=== PATIENT | female | born 1990 | race Hispanic/Latino ===

== ENCOUNTER 2016-07-09 14:40 | Emergency (ER) | payer OTHER ==
[2016-07-09] MEDS ORDERED: PERCOCET 5MG/325MG TAB As Ordered ONE (15:40)
[2016-07-09] MEDS ORDERED: ONDANSETRON 4 MG ORAL DISINTEGRATING TAB (S0181) As Ordered ONE (15:40)
--- NOTE | 2016-07-09 16:10 | EDDOCDS ---
Nurse's Notes [facility] Name: Jennifer Almonte Age: 25 yrs Sex: Female : 1990 Arrival Date: 07/09/2016 Time: 14:40 Bed I6 / 28 Private MD: Ramiro - Complete Info On Cds Diagnosis: Strain of muscle(s) and tendon(s) of the rotator cuff of left shoulder Presentation: 07/09 14:47 Presenting complaint: Patient states: while lifting up rucksack patient felt arm give hs1 out and felt a pop. Adult Sepsis Screening: The patient does not have new or worsening altered mentation. Patient's respiratory rate is less than 22. Systolic blood pressure is greater than 100. Patient has a qSOFA score of 0- Negative Sepsis Screen. Suicide/Homicide risk assessment- the patient denies having any suicidal and/or homicidal ideations and does not present with any other emotional, behavioral or mental health complaints. 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 Transition of care: patient was not received from another setting of care. 14:47 Acuity: HEYDI Level 4 hs1 14:47 Method Of Arrival: Walkin/Carried/Asstd hs1 Triage Assessment: 14:48 General: Appears uncomfortable, Behavior is appropriate for age, cooperative. Pain: hs1 Location: left clavicle Pain currently is 7 out of 10 on a pain scale. Quality of pain is described as pulsating. Pain: Quality of pain is described as sharp. Pt Declines HIV testing. Respiratory: Airway is patent Respiratory effort is even, unlabored. Derm: No deficits noted. 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 none - PMHx: none; - PSHx: none; - Social history: Smoking status: Patient states was never smoker of tobacco. No barriers to communication noted, The patient speaks fluent Frisian, Speaks appropriately for age. - Family history: Not pertinent. - : The pt / caregiver states he / she is not on anticoagulants. Home medication list is obtained from the patient. - Exposure Risk Screening:: None identified. Screenin:07 Screening information is obtained from the patient. Fall risk: No risks identified. mcp Assistance ADL's: requires no assistance with activities of daily living. Abuse/DV Screen: The patient / caregiver reports he/she is: not in a situation that causes fear, pain or injury. Nutritional screening: No deficits noted. Advance Directives: There is no active DNR order. home support is adequate. Assessment: 16:06 General: Appears uncomfortable, Behavior is cooperative. Pain: Location: left shoulder mcp Pain currently is 6 out of 10 on a pain scale. Neurological: No deficits noted. Respiratory: Airway is patent Respiratory effort is even, unlabored. Derm: Skin is pink, warm & dry. Musculoskeletal: Circulation, motion, and sensation intact Range of motion limited in left shoulder. Vital Signs: 14:41 BP 131 / 64; Pulse 80; Resp 18 S; Temp 97.7(O); Pulse Ox 99% on R/A; Weight 54.88 kg gr2 (R); Height 5 ft. 4 in. (162.56 cm) (R); Pain 9/10; 16:07 BP 113 / 72; Pulse 76; Resp 20; Temp 97(O); Pulse Ox 98% on R/A; Pain 6/10; mcp 16:09 Pain 6/10; mcp 14:41 Body Mass Index 20.77 (54.88 kg, 162.56 cm) gr2 Vitals: 14:41 Log In Time: July 09, 2016 at 14:41. gr2 ED Course: 14:41 Patient visited by Barbie Salmeron. gr2 14:41 Other - Complete Info On Cds is Private Physician. gr2 14:41 Patient moved to Waiting gr2 14:44 Patient visited by Barbie Salmeron. gr2 14:48 Triage Initiated hs1 14:49 Patient moved to Pre RCE hs1 15:33 José Warren PA-C is PHCP. cc10 15:33 Kindra Park MD is Attending Physician. cc10 15:33 Patient visited by José Warren PA-C. cc10 15:33 Patient visited by José Warren PA-C. cc10 15:33 Patient moved to Triage 1 mk4 15:42 Patient moved to TR8 bnb 15:48 Patient moved to I6 / 28 cc10 15:55 Tremaine Spann [facility] is Referral Physician. cc10 16:07 The patient / caregiver is instructed regarding the plan of care and ED course. Patient mcp has correct armband on for positive identification. Bed in low position. Call light in reach. 16:07 No IV's were initiated during this patient's visit. No procedures done that require mcp assistance. Sling applied to left arm. Patient with positive distal sensation and brisk distal capillary refill after application. Administered Medications: 15:42 Drug: oxyCODONE-acetaminophen 1 tabs [oxycodone-acetaminophen 5 mg-325 mg tablet (1 mlb1 tabs)] Route: PO; 16:09 Follow up: Pain 6/10 Adult; Response: Pain is decreased [facility] 15:42 Drug: Ondansetron ODT 4 mg [ondansetron 4 mg disintegrating tablet (1 tabs)] Route: PO; mlb1 Order Results: There are currently no results for this order. Outcome: 15:55 Discharge ordered by Provider. cc10 16:08 Discharge Assessment: patient administered narcotics - yes. Pt provided with safe mcp discharge. The following High Risk Discharge criteria are identified: None. Discharged to home ambulatory, with friend. Condition: stable. Discharge instructions given to patient, Instructed on discharge instructions, follow up and referral plans. medication usage, no driving heavy equipment, no drinking with medication, Demonstrated understanding of instructions, medications, Pt was receptive of discharge instructions/ teaching. Prescriptions given X 1. No special radiology studies were completed. Property sent home with patient. 16:09 Patient left the ED. [facility] Signatures: Amie Head RN RN Jonathan Marx RN RN mlb1 Cinthia Mao RN RN hs1 Barbie Salmeron gr2 Amanda Batista RN RN mk4 José Warren, PA-C PA-C cc10 Azul Boston, YOGESH DEODORIZER OPERATOR bnb MTDD
--- NOTE | 2016-07-09 16:10 | EDDOCDS ---
Physician Documentation [facility] Name: Jennifer Almonte Age: 25 yrs Sex: Female : 1990 Arrival Date: 07/09/2016 Time: 14:40 Bed I6 / 28 Private MD: Ramiro - Complete Info On Cds Disposition: 07/09/16 15:55 Discharged to Home/Self Care. Impression: Strain of muscle(s) and tendon(s) of the rotator cuff of left shoulder. - Condition is Stable. - Discharge Instructions: Shoulder Sprain. - Prescriptions for Percocet 5- 325 mg Oral Tablet - take 1 tablet by ORAL route every 6 hours As needed MDD: 4 tabs; 12 tablet. - Medication Reconciliation form. - Follow up: Tremaine Spann [facility]; When: Tomorrow; Reason: Wound/Symptom Recheck, Recheck today's complaints, Worsening of conditions, Continuance of care. - Problem is new. - Symptoms have improved. Historical: - Allergies: no known allergies; - Home Meds: 1. none - PMHx: none; - PSHx: none; - Social history: Smoking status: Patient states was never smoker of tobacco. No barriers to communication noted, The patient speaks fluent Slovenian, Speaks appropriately for age. - Family history: Not pertinent. - : The pt / caregiver states he / she is not on anticoagulants. Home medication list is obtained from the patient. - Exposure Risk Screening:: None identified. 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 4 in. (162.56 cm) (R); Pain 9/10; 16:07 BP 113 / 72; Pulse 76; Resp 20; Temp 97(O); Pulse Ox 98% on R/A; Pain 6/10; mcp 16:09 Pain 6/10; mcp 14:41 Body Mass Index 20.77 (54.88 kg, 162.56 cm) gr2 MDM: 15:37 oxyCODONE-acetaminophen 5 mg-325 mg 1 tabs PO once ordered. cc10 15:37 Ondansetron ODT Oral Disintegrating Tablet 4 mg PO once ordered. cc10 15:38 Shoulder, Complete Ordered. [facility]VA 16:05 Financial registration complete. zo Administered Medications: 15:42 Drug: oxyCODONE-acetaminophen 1 tabs [oxycodone-acetaminophen 5 mg-325 mg tablet (1 mlb1 tabs)] Route: PO; 16:09 Follow up: Pain 11/09 Adult; Response: Pain is decreased [facility] 15:42 Drug: Ondansetron ODT 4 mg [ondansetron 4 mg disintegrating tablet (1 tabs)] Route: PO; mlb1 Signatures: Dispatcher [employer] EDAmie Prince RN RN [facility] Susi Wilks Hannah, RN RN hs1 José Warren PA-C PA-C cc10 Jonathan Gamez RN mlb1 MTDD
--- NOTE | 2016-07-09 16:14 | REP ---
Left shoulder series: Three views: History: Trauma. Findings: There is an old healed left clavicular mid shaft fracture. Glenohumeral and acromioclavicular joints are normally aligned. No new fracture is seen. Periarticular soft tissues are unremarkable. Impression: Old healed fracture left clavicle. No acute abnormality. Signed by Quincy Castanon MD 07/09/2016 04:22 P
--- NOTE | 2016-07-11 17:10 | EDDOCDS ---
Physician Documentation [facility] Name: Jennifer Almonte Age: 25 yrs Sex: Female : 1990 Arrival Date: 07/09/2016 Time: 14:40 Bed I6 / 28 Private MD: Ramiro - Complete Info On Cds Disposition: 07/09/16 15:55 Discharged to Home/Self Care. Impression: Strain of muscle(s) and tendon(s) of the rotator cuff of left shoulder. - Condition is Stable. - Discharge Instructions: Shoulder Sprain. - Prescriptions for Percocet 5- 325 mg Oral Tablet - take 1 tablet by ORAL route every 6 hours As needed MDD: 4 tabs; 12 tablet. - Medication Reconciliation form. - Follow up: Tremaine Spann [facility]; When: Tomorrow; Reason: Wound/Symptom Recheck, Recheck today's complaints, Worsening of conditions, Continuance of care. - Problem is new. - Symptoms have improved. Historical: - Allergies: no known allergies; - Home Meds: 1. none - PMHx: none; - PSHx: none; - Social history: Smoking status: Patient states was never smoker of tobacco. No barriers to communication noted, The patient speaks fluent Indonesian, Speaks appropriately for age. - Family history: Not pertinent. - : The pt / caregiver states he / she is not on anticoagulants. Home medication list is obtained from the patient. - Exposure Risk Screening:: None identified. 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 4 in. (162.56 cm) (R); Pain 9/10; 16:07 BP 113 / 72; Pulse 76; Resp 20; Temp 97(O); Pulse Ox 98% on R/A; Pain 6/10; mcp 16:09 Pain 6/10; mcp 14:41 Body Mass Index 20.77 (54.88 kg, 162.56 cm) gr2 MDM: 15:37 oxyCODONE-acetaminophen 5 mg-325 mg 1 tabs PO once ordered. cc10 15:37 Ondansetron ODT Oral Disintegrating Tablet 4 mg PO once ordered. cc10 15:38 Shoulder, Complete Ordered. EDMS 16:05 Financial registration complete. zo 16:10 [facility] Payment Agreement was scanned into [employer] and attached to record. jp5 07/10 12:04 T-Sheet-- Draft Copy was scanned into [employer] and attached to record. gb Administered Medications: 07/09 15:42 Drug: oxyCODONE-acetaminophen 1 tabs [oxycodone-acetaminophen 5 mg-325 mg tablet (1 mlb1 tabs)] Route: PO; 16:09 Follow up: Pain 11/09 Adult; Response: Pain is decreased [facility] 15:42 Drug: Ondansetron ODT 4 mg [ondansetron 4 mg disintegrating tablet (1 tabs)] Route: PO; mlb1 Signatures: Dispatcher [employer] EDMS Amie Head RN RN [facility] Mariia Christianson, Reg Reg gb Susi Wilks Hannah, RN RN hs1 José Warren, PA-C PA-C cc10 Linda Tavera jp5 Jonathan Gamez RN mlb1 The chart was reviewed and I authenticate all verbal orders and agree with the evaluation and treatment provided.Attachments: 16:10 [facility] Payment Agreement jp5 07/10 12:04 T-Sheet-- Draft Copy gb Chart Complete MTDD
--- NOTE | 2016-07-11 17:10 | EDDOCDS ---
Nurse's Notes [facility] Name: Jennifer Almonte Age: 25 yrs Sex: Female : 1990 Arrival Date: 07/09/2016 Time: 14:40 Bed I6 / 28 Private MD: Ramiro - Complete Info On Cds Diagnosis: Strain of muscle(s) and tendon(s) of the rotator cuff of left shoulder Presentation: 07/09 14:47 Presenting complaint: Patient states: while lifting up rucksack patient felt arm give hs1 out and felt a pop. Adult Sepsis Screening: The patient does not have new or worsening altered mentation. Patient's respiratory rate is less than 22. Systolic blood pressure is greater than 100. Patient has a qSOFA score of 0- Negative Sepsis Screen. Suicide/Homicide risk assessment- the patient denies having any suicidal and/or homicidal ideations and does not present with any other emotional, behavioral or mental health complaints. 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 Transition of care: patient was not received from another setting of care. 14:47 Acuity: HEYDI Level 4 hs1 14:47 Method Of Arrival: Walkin/Carried/Asstd hs1 Triage Assessment: 14:48 General: Appears uncomfortable, Behavior is appropriate for age, cooperative. Pain: hs1 Location: left clavicle Pain currently is 7 out of 10 on a pain scale. Quality of pain is described as pulsating. Pain: Quality of pain is described as sharp. Pt Declines HIV testing. Respiratory: Airway is patent Respiratory effort is even, unlabored. Derm: No deficits noted. 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 none - PMHx: none; - PSHx: none; - Social history: Smoking status: Patient states was never smoker of tobacco. No barriers to communication noted, The patient speaks fluent Yoruba, Speaks appropriately for age. - Family history: Not pertinent. - : The pt / caregiver states he / she is not on anticoagulants. Home medication list is obtained from the patient. - Exposure Risk Screening:: None identified. Screenin:07 Screening information is obtained from the patient. Fall risk: No risks identified. mcp Assistance ADL's: requires no assistance with activities of daily living. Abuse/DV Screen: The patient / caregiver reports he/she is: not in a situation that causes fear, pain or injury. Nutritional screening: No deficits noted. Advance Directives: There is no active DNR order. home support is adequate. Assessment: 16:06 General: Appears uncomfortable, Behavior is cooperative. Pain: Location: left shoulder mcp Pain currently is 6 out of 10 on a pain scale. Neurological: No deficits noted. Respiratory: Airway is patent Respiratory effort is even, unlabored. Derm: Skin is pink, warm & dry. Musculoskeletal: Circulation, motion, and sensation intact Range of motion limited in left shoulder. Vital Signs: 14:41 BP 131 / 64; Pulse 80; Resp 18 S; Temp 97.7(O); Pulse Ox 99% on R/A; Weight 54.88 kg gr2 (R); Height 5 ft. 4 in. (162.56 cm) (R); Pain 9/10; 16:07 BP 113 / 72; Pulse 76; Resp 20; Temp 97(O); Pulse Ox 98% on R/A; Pain 6/10; mcp 16:09 Pain 6/10; mcp 14:41 Body Mass Index 20.77 (54.88 kg, 162.56 cm) gr2 Vitals: 14:41 Log In Time: July 09, 2016 at 14:41. gr2 ED Course: 14:41 Patient visited by Barbie Salmeron. gr2 14:41 Other - Complete Info On Cds is Private Physician. gr2 14:41 Patient moved to Waiting gr2 14:44 Patient visited by Barbie Salmeron. gr2 14:48 Triage Initiated hs1 14:49 Patient moved to Pre RCE hs1 15:33 José Warren PA-C is PHCP. cc10 15:33 Kindra Park MD is Attending Physician. cc10 15:33 Patient visited by José Warren PA-C. cc10 15:33 Patient visited by José Warren PA-C. cc10 15:33 Patient moved to Triage 1 mk4 15:42 Patient moved to TR8 bnb 15:48 Patient moved to I6 / 28 cc10 15:55 Tremaine Spann [facility] is Referral Physician. cc10 16:07 The patient / caregiver is instructed regarding the plan of care and ED course. Patient mcp has correct armband on for positive identification. Bed in low position. Call light in reach. 16:07 No IV's were initiated during this patient's visit. No procedures done that require mcp assistance. Sling applied to left arm. Patient with positive distal sensation and brisk distal capillary refill after application. 16:10 [facility] Payment Agreement was scanned into [employer] and attached to record. jp5 16:27 Shoulder, Complete Returned. EDMS 16:56 Patient name changed from Jennifer\S\G\S\Almonte\S\ to Jennifer\S\Marina\S\Almonte. EDMS 07/10 12:04 T-Sheet-- Draft Copy was scanned into [employer] and attached to record. gb Administered Medications: 07/09 15:42 Drug: oxyCODONE-acetaminophen 1 tabs [oxycodone-acetaminophen 5 mg-325 mg tablet (1 mlb1 tabs)] Route: PO; 16:09 Follow up: Pain / Adult; Response: Pain is decreased [facility] 15:42 Drug: Ondansetron ODT 4 mg [ondansetron 4 mg disintegrating tablet (1 tabs)] Route: PO; mlb1 Order Results: Radiology Order: Shoulder, Complete Test: Shoulder, Complete REASON FOR EXAMINATION: Trauma; Left shoulder series: Three views:; ; History: Trauma.; ; Findings: There is an old healed left clavicular mid shaft fracture.; Glenohumeral and acromioclavicular joints are normally aligned. No new fracture; is seen. Periarticular soft tissues are unremarkable.; ; Impression:; ; Old healed fracture left clavicle. No acute abnormality.; ; ; Signed by; Quincy Castanon MD 07/09/2016 04:22 P; Outcome: 15:55 Discharge ordered by Provider. cc10 16:08 Discharge Assessment: patient administered narcotics - yes. Pt provided with safe mcp discharge. The following High Risk Discharge criteria are identified: None. Discharged to home ambulatory, with friend. Condition: stable. Discharge instructions given to patient, Instructed on discharge instructions, follow up and referral plans. medication usage, no driving heavy equipment, no drinking with medication, Demonstrated understanding of instructions, medications, Pt was receptive of discharge instructions/ teaching. Prescriptions given X 1. No special radiology studies were completed. Property sent home with patient. 16:09 Patient left the ED. [facility] Signatures: Dispatcher [employer] EDMS Amie Heda, RN RN Mariia Jackson, Jonathan Martinez RN RN mlb1 Cinthia Mao RN RN hs1 Barbie Salmeron gr2 Amanda Batista RN RN mk4 José Warren, PA-C PA-C cc10 Linda Tavera 5 Azul Boston, YOGESH AERIAL ERECTOR bnb Chart Complete MTDD
--- NOTE | 2016-07-11 17:10 | EDDOCDS ---
Physician Documentation [facility] Name: Jennifer Almonte Age: 25 yrs Sex: Female : 1990 Arrival Date: 07/09/2016 Time: 14:40 Bed I6 / 28 Private MD: Ramiro - Complete Info On Cds Disposition: 07/09/16 15:55 Discharged to Home/Self Care. Impression: Strain of muscle(s) and tendon(s) of the rotator cuff of left shoulder. - Condition is Stable. - Discharge Instructions: Shoulder Sprain. - Prescriptions for Percocet 5- 325 mg Oral Tablet - take 1 tablet by ORAL route every 6 hours As needed MDD: 4 tabs; 12 tablet. - Medication Reconciliation form. - Follow up: Tremaine Spann [facility]; When: Tomorrow; Reason: Wound/Symptom Recheck, Recheck today's complaints, Worsening of conditions, Continuance of care. - Problem is new. - Symptoms have improved. Historical: - Allergies: no known allergies; - Home Meds: 1. none - PMHx: none; - PSHx: none; - Social history: Smoking status: Patient states was never smoker of tobacco. No barriers to communication noted, The patient speaks fluent Wolof, Speaks appropriately for age. - Family history: Not pertinent. - : The pt / caregiver states he / she is not on anticoagulants. Home medication list is obtained from the patient. - Exposure Risk Screening:: None identified. 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 4 in. (162.56 cm) (R); Pain 9/10; 16:07 BP 113 / 72; Pulse 76; Resp 20; Temp 97(O); Pulse Ox 98% on R/A; Pain 6/10; mcp 16:09 Pain 6/10; mcp 14:41 Body Mass Index 20.77 (54.88 kg, 162.56 cm) gr2 MDM: 15:37 oxyCODONE-acetaminophen 5 mg-325 mg 1 tabs PO once ordered. cc10 15:37 Ondansetron ODT Oral Disintegrating Tablet 4 mg PO once ordered. cc10 15:38 Shoulder, Complete Ordered. EDMS 16:05 Financial registration complete. zo 16:10 [facility] Payment Agreement was scanned into [employer] and attached to record. jp5 07/10 12:04 T-Sheet-- Draft Copy was scanned into [employer] and attached to record. gb Administered Medications: 07/09 15:42 Drug: oxyCODONE-acetaminophen 1 tabs [oxycodone-acetaminophen 5 mg-325 mg tablet (1 mlb1 tabs)] Route: PO; 16:09 Follow up: Pain 11/09 Adult; Response: Pain is decreased [facility] 15:42 Drug: Ondansetron ODT 4 mg [ondansetron 4 mg disintegrating tablet (1 tabs)] Route: PO; mlb1 Signatures: Dispatcher [employer] EDMS Amie Head RN RN [facility] Mariia Christianson, Reg Reg gb Susi Wilks Hannah, RN RN hs1 José Warren, PA-C PA-C cc10 Linda Tavera jp5 Jonathan Gamez RN mlb1 The chart was reviewed and I authenticate all verbal orders and agree with the evaluation and treatment provided.Attachments: 16:10 [facility] Payment Agreement jp5 07/10 12:04 T-Sheet-- Draft Copy gb Chart Complete MTDD
== END 2016-07-09 16:09 | disposition home or self-care (01) ==
LOC: M ED 14:40
DX: S43.422A Sprain of left rotator cuff capsule, initial encounter (principal); X50.9XXA Other and unspecified overexertion or strenuous movements or postures, initial encounter; Y92.89 Other specified places as the place of occurrence of the external cause; Y93.89 Activity, other specified; Y99.8 Other external cause status